=== PATIENT | female | born 1975 | race African-American/Black ===

== ENCOUNTER 2021-04-27 10:02 | Observation (INO) | payer BC ==
[2021-04-27 10:10] VITALS: BMI 24.1
[2021-04-27 11:37] LABS: BASO % 0.5 % (0-2.0); EOS % 1.1 % (0-4.5); HEMATOCRIT 29.5 % (32.4-45.2); HEMOGLOBIN 9.5 GM/dL (10.7-15.3); LYMPH % 27.2 % (8-40); MCH 25.1 pg (25.7-33.7); MCHC 32.2 g/dl (32.0-36.0); MEAN CELL VOLUME 77.9 fl (80-96); MONO % 7.8 % (3.8-10.2); NEUT % 63.4 % (42.8-82.8); PLATELET COUNT 358 10^3/uL (134-434); RBC 3.79 M/mm3 (3.60-5.2); WHITE BLOOD COUNT 6.1 K/mm3 (4.0-10.0)
[2021-04-27 12:07] LABS: CHLORIDE 104 mmol/L (98-107); SODIUM 137 mmol/L (136-145)
[2021-04-27 12:09] LABS: CALCIUM 9.3 mg/dL (8.5-10.1)
[2021-04-27 12:10] LABS: ALBUMIN 3.8 g/dl (3.4-5.0); ANION GAP 8 MMOL/L (8-16); CO2 25 mmol/L (21-32); GLUCOSE,RANDOM 95 mg/dL (74-106); MAGNESIUM 1.9 mg/dL (1.8-2.4)
[2021-04-27 12:13] LABS: SGOT/AST 17 U/L (15-37); SGPT/ALT 21 U/L (13-61)
[2021-04-27 12:15] LABS: ALK PHOS 59 U/L (45-117); BLOOD UREA NITROGEN 14.4 mg/dL (7-18); TOT PROT 7.3 g/dl (6.4-8.2)
[2021-04-27 12:38] LABS: BILIRUBIN,TOTAL 0.2 mg/dL (0.2-1)
[2021-04-27] MEDS ORDERED: ASPIRIN 325 MG ENTERIC COATED TABLET (FP) PO ONE (12:38)
[2021-04-27] MEDS ORDERED: ASPIRIN 325 MG ENTERIC COATED TABLET (FP) ONE (12:56)
[2021-04-27] MEDS ORDERED: LABETALOL HCL 100 MG TABLET (FP) PO ONE (14:30)
[2021-04-27] MEDS ORDERED: LABETALOL HCL 100 MG TABLET (FP) ONE (15:15)
[2021-04-27] MEDS ORDERED: LABETALOL HCL 200 MG TABLET (FP) PO SCH (22:00)
[2021-04-27] MEDS ORDERED: DOCUSATE SODIUM 100 MG CAPSULE (FP) PO SCH (22:00)
[2021-04-28 06:13] VITALS: TEMP 98
[2021-04-28 06:50] LABS: HEMATOCRIT 29.1 % (32.4-45.2); HEMOGLOBIN 9.6 GM/dL (10.7-15.3); MCH 25.5 pg (25.7-33.7); MEAN CELL VOLUME 77.3 fl (80-96); MEAN PLT VOLUME 8.1 fl (7.5-11.1); PLATELET COUNT 311 10^3/uL (134-434); RBC 3.77 M/mm3 (3.60-5.2); RDW 17.6 % (11.6-15.6); WHITE BLOOD COUNT 5.9 K/mm3 (4.0-10.0)
[2021-04-28 07:13] LABS: BLOOD UREA NITROGEN 13.6 mg/dL (7-18); CALCIUM 9.1 mg/dL (8.5-10.1)
[2021-04-28 07:16] LABS: CREATININE 0.8 mg/dL (0.55-1.3)
[2021-04-28] MEDS ORDERED: ACETAMINOPHEN INJECTION 100 ML IVPB ONE (08:55)
[2021-04-28] MEDS ORDERED: ACETAMINOPHEN 1000 MG/100 ML VIAL (NON FORMULARY) IVPB ONE (09:00)
[2021-04-28] MEDS ORDERED: VALSARTAN 160 MG TABLET PO ONE (09:46)
[2021-04-28] MEDS ORDERED: ENOXAPARIN NA (PORCINE) 40 MG/0.4 ML DISP.SYRIN SQ SCH (10:00)
[2021-04-28] MEDS ORDERED: VALSARTAN 160 MG TABLET PO SCH (10:00)
[2021-04-28] MEDS ORDERED: HYDROCHLOROTHIAZIDE 25 MG TABLET (FP) PO SCH (10:00)
[2021-04-28] MEDS ORDERED: HYDROCHLOROTHIAZIDE 25 MG TABLET (FP) ONE (10:13)
[2021-04-28] MEDS ORDERED: VALSARTAN 80 MG TABLET ONE (10:14)
[2021-04-28 14:09] VITALS: BP 126/70; PULSE 82
[2021-04-28] MEDS ORDERED: PT OWN MED DRAWER 7, Y5N ONE (14:41)
[2021-04-29] MEDS ORDERED: VALSARTAN 160 MG TABLET PO SCH ×2 (10:00)
[2021-04-30 20:07] LABS: RENIN ACTIVITY(PRA) 2.722 ng/mL/hr (0.167-5.380)
== END 2021-04-28 15:31 | disposition home or self-care (01) ==
LOC: JER 10:02 → JERBED 16:18
PROVIDERS: ATTEND Internal Medicine
DX: I11.9 Hypertensive heart disease without heart failure (principal); I50.30 Unspecified diastolic (congestive) heart failure; R07.89 Other chest pain; E78.5 Hyperlipidemia, unspecified; D50.9 Iron deficiency anemia, unspecified
CPT/HCPCS: 36415; 71045-TC-FY; 71275-TC; 80048; 80053; 82088; 82550; 82553; 82728; 83540; 83550; 83735; 83880; 84100; 84244; 84443; 84484; 84703; 85025; 85027; 85379; 93005; 93010; 93306-TC; 99285-25; C9803; G0378; Q9967; U0003; U0005